=== PATIENT | male | born 1970 | race Caucasian/White ===

== ENCOUNTER 2023-06-10 09:24 | Emergency (ER) | payer BC, SELFPAY ==
[2023-06-10] VITALS (8 sets, daily range): BP systolic 117–136; BP diastolic 71–94; PULSE 60–74; RESP 14–22; O2SAT 95–97; BMI 27.6
--- NOTE | 2023-06-10 09:34 | XR_ITS ---
[address] [address] Patient Name: ALISHA DAUGHERTY MRN: [id number] date: 1970 Sex: M Assigned Patient Location: ER Current Patient Location: ER Accession/Order Number: [id number] Exam Date: 06/10/2023 09:45 Report Date: 06/10/2023 10:24 At the request of: CRISTINE ELIZONDO Procedure: XR chest 1V EXAM: XR chest 1V INDICATION: CP. COMPARISON: Chest radiograph 03/02/2021 TECHNIQUE: Single frontal view of the chest FINDINGS: Normal cardiomediastinal contours. No acute infiltrative process. No pleural effusion or pneumothorax. No acute osseous abnormality. XR/XR chest 1V IMPRESSION: No acute cardiopulmonary process. Electronically authenticated by: ASIM COVARRUBIAS Date: 06/10/2023 10:24
--- NOTE | 2023-06-10 09:34 | ECG_ITS ---
[facility] Test Date: 2023-06-10 Pat Name: ALISHA DAUGHERTY Department: Room: - Gender: Male [employer]: : 1970 Requested By: Order Number: [id number] Reading MD: UYEN VARELA Measurements Intervals [place] Rate: 60 P: 34 VT: 176 QRS: 33 QRSD: 104 T: 24 QT: 422 QTc: 423 Interpretive Statements 1100 Sinus rhythm 2420 RSR (QR) in lead V1/V2, consistent with right ventricular conduction delay 9130 borderline ECG Compared to ECG 08/26/2019 00:25:08 T-wave abnormality no longer present Electronically Signed On 06-11-2023 6:56:54 EST by UYEN VARELA
--- NOTE | 2023-06-10 09:34 | ED_ITS ---
HPI - Chest Pain General Chief Complaint: Chest Pain Stated Complaint: CHEST PAIN Time Seen by Provider: 06/10/23 09:25 Source: patient Mode of arrival: walk-in Limitations: no limitations History of Present Illness HPI narrative: 53-year-old male presents to the emergency department for chest pain. He's had it nearly every day since March, over two months ago. He had testing done as an outpatient at another hospital. He points to a very localized area just medial to his left nipple to indicate area of pain and feels a lump there. No trauma fever or productive cough. No back pain. Related Data Allergies Allergy/AdvReac Type Severity Reaction Status Date / Time Iodinated Contrast Media Allergy Severe Difficulty Verified 06/10/23 09:34 Breathing Review of Systems ROS Narrative A ten point review of systems is negative except as noted above. PFSH PFS Social History Smoking status: Former smoker Exam Narrative Exam Narrative: Nurses note and vital signs reviewed and patient is not hypoxic. General: The patient appears well and in no apparent distress. Patient is resting comfortably on cart. Skin: Warm, dry, no pallor noted. There is no rash noted. Head: Normocephalic, atraumatic Eye: Normal conjunctiva, no drainage Ears, Nose, Mouth, and Throat: oral mucosa is moist. Nares patent. Cardiovascular: Regular Rate and Rhythm; he has palpable tenderness just medial to the left nipple. There is an irregularity in the bony structures there. This seems to reproduce his pain. Respiratory: Patient is in no distress, no accessory muscle use, lungs are clear to auscultation, no wheezing, rales or rhonchi Back: non-tender GI: soft and nontender Musculoskeletal: The patient has no evidence of calf tenderness, no pitting edema, symmetrical pulses noted bilaterally Neurological: A&O, normal speech Psychiatric: Cooperative Constitutional Vital Signs, click to edit/add: Last Vital Signs Pulse 74 06/10/23 10:10 Resp 14 06/10/23 10:10 BP 117/71 06/10/23 10:00 Pulse Ox 96 06/10/23 10:10 O2 Del Method Room Air 06/10/23 09:53 Course Vital Signs Vital signs: Vital Signs Pulse Rate 67 06/10/23 09:31 Respiratory Rate 16 06/10/23 09:31 Blood Pressure 133/87 06/10/23 09:31 Pulse Oximetry 97 01/28/24 09:31 Oxygen Delivery Method Room Air 06/10/23 09:31 Pulse Rate 74 06/10/23 10:10 Respiratory Rate 14 06/10/23 10:10 Blood Pressure 117/71 06/10/23 10:00 Pulse Oximetry 96 06/10/23 10:10 Oxygen Delivery Method Room Air 06/10/23 09:53 MDM - Chest Pain MDM Narrative Medical decision making narrative: his workup is negative. He's been having these symptoms for more than two months. My clinical impression is that this is in the wall of his chest. He is discharged home and was recommended ibuprofen and follow-up with his PCP. Treatment diagnosis and follow-up were discussed with the patient. Differential Diagnosis Differential diagnosis: Likely fracture of rib, pneumothorax, unstable angina pectoris, st elevation myocardial infarction, costochondritis and chest pain Lab Data Attestation: I reviewed the patient's lab results. Labs: Lab Results 06/10/23 Range/Units 09:45 WBC 6.6 (4.0-11.0) 10^3/uL RBC 4.69 L (4.70-6.10) 10^6/uL Hgb 13.8 L (14.0-18.0) g/dL Hct 42.2 (42.0-54.0) % MCV 90.0 (80.0-94.0) fL MCH 29.4 (25.9-34.0) pg MCHC 32.7 (29.9-35.2) g/dL RDW 12.9 (11.0-15.0) % Plt Count 183 (150-450) 10^3/uL MPV 10.4 (9.5-13.5) fL Neut % (Auto) 62.0 (43.0-75.0) % Lymph % (Auto) 24.7 (20.5-60.0) % [place] % (Auto) 8.7 (1.7-12.0) % Eos % (Auto) 3.7 (0.9-7.0) % Baso % (Auto) 0.6 (0.2-2.0) % Neut # (Auto) 4.1 (1.4-6.5) 10^3/uL Lymph # (Auto) 1.6 (1.2-3.8) 10^3/uL [place] # (Auto) 0.6 (0.3-0.8) 10^3/uL Eos # (Auto) 0.2 (0.0-0.7) 10^3/uL Baso # (Auto) 0.0 (0.0-0.1) 10^3/uL Abs Immat Gran (auto) 0.02 (0.00-0.03) 10^3/uL Imm/Tot Granulo (auto) 0.3 (0.0-0.5) % Sodium 142 (136-145) mmol/L Potassium 4.2 (3.5-5.1) mmol/L Chloride 105 (98-107) mmol/L Carbon Dioxide 26.9 (21.0-32.0) mmol/L Anion Gap 14.3 BUN 14.0 (7.0-18.0) mg/dL Creatinine 0.95 (0.70-1.30) mg/dL Est GFR ( Amer) >60 (>=60) Est GFR (Non-Af Amer) >60 (>=60) BUN/Creatinine Ratio 14.7 Glucose 87 (74-106) mg/dL Calcium 8.8 (8.5-10.1) mg/dL Troponin I High Sens 5.9 (4.0-76.1) pg/mL Imaging Data Chest x-ray: Radiologist's impression: ITS Impressions Chest X-Ray 06/10/23 09:34 IMPRESSION: No acute cardiopulmonary process. Electronically authenticated by: ASIM COVARRUBIAS Date: 06/10/2023 10:24 ECG Data Attestation: I personally reviewed and interpreted this ECG as follows: (EKG on my interpretation shows sinus rhythm without acute change) Heart Score History: Slightly/Non-Suspicious ECG: Normal Age: >45-<65 years Risk Factors: No Risk Factors Troponin: <Normal Limit Total Heart Score Recommendations & Risks:: 1 Discharge Plan Discharge Chief Complaint: Chest Pain Clinical Impression: Chest wall pain Patient Disposition: Home, Self-Care Time of Disposition Decision: 10:34 Condition: Good Mode of Transportation: Private Vehicle Instructions: Chest Pain (ED), Chest Wall Pain (ED) Stand Alone Forms: Portal Instructions Referrals: ALISHA MORAN [Primary Care Provider] - 1 week
[2023-06-10 09:55] LABS: Basophils Percent Auto 0.6 % (0.2-2.0); Eosinophils Absolute Auto 0.2 10^3/uL (0.0-0.7); Eosinophils Percent Auto 3.7 % (0.9-7.0); Hematocrit 42.2 % (42.0-54.0); Hemoglobin 13.8 g/dL (14.0-18.0); Immature Granulocytes Abs Auto 0.02 10^3/uL (0.00-0.03); Immature Granulocytes Pct Auto 0.3 % (0.0-0.5); Lymphocytes Absolute Auto 1.6 10^3/uL (1.2-3.8); Lymphocytes Percent Auto 24.7 % (20.5-60.0); Mean Corpuscular HGB Conc 32.7 g/dL (29.9-35.2); Mean Corpuscular Hemoglobin 29.4 pg (25.9-34.0); Mean Platelet Volume 10.4 fL (9.5-13.5); Monocytes Absolute Auto 0.6 10^3/uL (0.3-0.8); Monocytes Percent Auto 8.7 % (1.7-12.0); Neutrophils Absolute Auto 4.1 10^3/uL (1.4-6.5); Platelet Count 183 10^3/uL (150-450); Red Blood Count 4.69 10^6/uL (4.70-6.10); Red Cell Distribution Width 12.9 % (11.0-15.0); White Blood Count 6.6 10^3/uL (4.0-11.0)
[2023-06-10 10:09] LABS: Anion Gap 14.3; BUN Creatinine Ratio 14.7; Calcium 8.8 mg/dL (8.5-10.1); Carbon Dioxide 26.9 mmol/L (21.0-32.0); Chloride 105 mmol/L (98-107); Estimated GFR (African America >60 (>=60); Estimated GFR (Non-African Ame >60 (>=60); Glucose 87 mg/dL (74-106); Potassium 4.2 mmol/L (3.5-5.1); Sodium 142 mmol/L (136-145); Troponin I High Sensitivity 5.9 pg/mL (4.0-76.1)
== END 2023-06-10 10:50 | disposition home or self-care (01) ==
PROVIDERS: Emergency Provider Emergency Medicine; PCP Internal Medicine
DX: R07.89 Other chest pain (principal); Z87.891 Personal history of nicotine dependence
CPT/HCPCS: 36415; 71045; 80048; 84484; 85025; 93005; 99285